=== PATIENT | female | born 1955 | race Caucasian/White ===

== ENCOUNTER → 2018-10-15 | Day surgery (SDC) | payer OTHER ==
[~2018-10-15] MED LIST: AMANTADINE HCL25 GM; AMANTADINE100 MG PO; AMPICILLIN SOD 1 GM/NS 50ML 50 ML IV ONE; AMPYRA10 MG; BELLADONNA/OPIUM 30 MG SUPP RC ONE; BOTULINUM TOXIN TYPE A 100 UNIT VIAL IM ONE; CALCIUM VIT D; CITALOPRAM HBR20 MG PO; CO Q10100 MG PO; COQ-10100 MG; DEXAMETHASONE SOD PHOS INJ 4 MG/ML VIAL ONE; FISH OIL 1,2001 EACH; GENTAMICIN 80MG/NS 100 ML 200 ML IV ONE; IOPAMIDOL 610MG/1ML 300 MG/ML VIAL IV ONE; LIDOCAINE HCL 2% LOCAL INJ 5 ML SDV VIAL INJ ONE; LYRICA50 MG; MULTI-VITAMIN1 EACH; ONDANSETRON HCL INJ 2MG/ML 2ML 2 MG/ML VIAL ONE; PROPOFOL IV EMULSION 10 MG/ML 20 ML VIAL ONE; RED YEAST RICE600 M1; SEVOFLURANE INHAL SOLN 250 ML PEN BTL ONE; TOPIRAMATE100 MG PO; TOPIRAMATE25 MG PO; TURMERIC1 GM PO; VIT B12 PO; [UNRECOGNIZED DRUG - REMARK]
--- OUTSIDE RECORDS SUMMARY | 2018-10-15 07:23 | XMS REPORT | Clinical Summary ---
Author Author [facility] Organization [facility] Address Unknown Phone Unavailable Care Team Providers Care Glost Placer Name Role Phone Amy Oakes MD PCP Allergies Comments Active Allergy Reactions Severity Noted Date Hydrocodone Hives 06/27/2018 Rash Sulfa (Sulfonamide 06/27/2018 Antibiotics) Medications End Date Status Medication Sig Dispensed Refills Start Date Active ondansetron (ZOFRAN) 4 MG Take 1 tablet 7 tablet 0 tablet (4 mg total) 8 by mouth every 8 (eight) hours as needed for nausea or vomiting for up to 7 doses. 07/02/2018 tamsulosin (FLOMAX) 0.4 Take 1 5 capsule 0 mg capsule capsule (0.4 8 mg total) by mouth daily for 5 days. 06/30/2018 keTOROlac (TORadol) 10 mg Take 1 tablet 10 tablet 0 tablet (10 mg total) 8 by mouth every 6 (six) hours as needed for moderate pain for up to 3 days. 07/02/2018 nitrofurantoin, Take 1 10 capsule 0 macrocrystal-monohydrate, capsule (100 8 (MACROBID) 100 MG capsule mg total) by mouth 2 (two) times a day for 5 days. Active Problems Not on file Encounters Care Team Description Date Type Specialty William Frey MD Liver hemangioma (Primary Dx); Renal stone; Urinary tract infection with hematuria, site unspecified; Candidiasis 06/27/2018 Emergency Emergency Medicine after 10/14/2017 Social History Date Tobacco Use Types Packs/Day Years Used Never Smoker Smokeless Tobacco: Never Used Alcohol Use Drinks/Week oz/Week Comments No Sex Assigned at Date Recorded Not on file Industry Job Start Date Occupation Not on file Not on file Not on file Travel End Travel History Travel Start No recent travel history available. Last Filed Vital Signs Time Taken Vital Sign Reading 06/27/2018 6:41 PM CDT Blood Pressure 113/58 06/27/2018 6:41 PM CDT Pulse 68 06/27/2018 1:57 PM CDT Temperature 36.7 C (98.1 F) 06/27/2018 6:41 PM CDT Respiratory Rate 20 06/27/2018 6:41 PM CDT Oxygen Saturation 98% - Inhaled Oxygen - Concentration 06/27/2018 1:57 PM CDT Weight 89.8 kg (198 lb) 06/27/2018 1:57 PM CDT Height 172.7 cm (5' 8") 06/27/2018 1:57 PM CDT Body Mass Index 30.11 Plan of Treatment Health Maintenance Due Date Last Done Comments CERVICAL CANCER SCREENING 1976 BREAST CANCER SCREENING 2005 COLON CANCER SCREENING 2005 SHINGLES VACCINES (1 of 2005 2) INFLUENZA VACCINE 04/30/2018 Procedures Comments Procedure Name Priority Date/Time Associated Diagnosis CT ABDOMEN PELVIS W STAT 06/27/2018 CONTRAST 5:01 PM CDT URINALYSIS SCREEN AND STAT 06/27/2018 MICROSCOPY, WITH REFLEX 3:45 PM CDT TO CULTURE GRAM STAIN STAT 06/27/2018 3:45 PM CDT URINE CULTURE STAT 06/27/2018 3:45 PM CDT ESTIMATED GFR STAT 06/27/2018 3:10 PM CDT COMPREHENSIVE METABOLIC STAT 06/27/2018 PANEL 3:10 PM CDT PARTIAL THROMBOPLASTIN STAT 06/27/2018 TIME (PTT) 3:10 PM CDT PROTHROMBIN TIME WITH INR STAT 06/27/2018 3:10 PM CDT HC COMPLETE BLD COUNT STAT 06/27/2018 W/AUTO DIFF 3:10 PM CDT after 10/14/2017 Results * CT Abdomen Pelvis W Contrast (06/27/2018 5:01 PM CDT) Narrative Performed At CT ABDOMEN PELVIS W CONTRAST [facility] CLINICAL INDICATION: Abd paindiverticulitis suspected, RLQ pain TECHNIQUE:Multidetector CT imaging of the abdomen and pelvis was performed following the intravenous administration of iodinated contrast with automated exposure control and/or iterative reconstruction techniques to radiation dose. COMPARISON:None FINDINGS: LUNG BASES:Clear. LIVER:There is a well-circumscribed but mixed density mass in the left hepatic dome that measures 3.4 x 4.1 cm with an area of peripheral nodular enhancement most consistent with a cavernous hemangioma. Consider MR for definitive characterization as warranted. Punctate granulomas noted. BILIARY:Gallbladder is absent. No biliary dilatation. SPLEEN:Normal. PANCREAS:Normal. ADRENALS:Normal. KIDNEYS:Indeterminate too small to characterize low-density probable cyst lower pole left kidney. There is delayed enhancement of the right kidney with prominent perinephric stranding and moderate hydronephrosis, the right ureter dilated into the pelvis with a 2 mm calculus at the right ureterovesical junction causing obstructive uropathy. GI:Large and small bowel are normal in caliber.Moderate stool noted to the colon.Appendix is visualized and appears normal. Small hiatal hernia. VASCULAR:Mild atherosclerosis. LYMPH NODES:No enlarged lymph nodes in the abdomen or pelvis. PELVIS:No lymphadenopathy or abnormal fluid collection.Uterus and ovaries are unremarkable. BONES:Mild degenerative changes. OTHER:No hernia is identified. IMPRESSION: 1. Acute obstructive uropathy with 2 mm calculus in the right uterovesical junction as described. No findings for acute appendicitis. 2. Multiple incidental findings as described including probable 4.1 cm cavernous hemangioma left hepatic dome, small hiatal hernia, hepatic granulomas and other findings as detailed. Thank you for allowing us to participate in the care of your patient. [id number] Procedure Note Interface, Radiology Results Incoming - 06/27/2018 5:[address] ABDOMEN PELVIS W CONTRAST CLINICAL INDICATION: Abd pain diverticulitis suspected, RLQ pain TECHNIQUE: Multidetector CT imaging of the abdomen and pelvis was performed following the intravenous administration of iodinated contrast with automated exposure control and/or iterative reconstruction techniques to radiation dose. COMPARISON: None FINDINGS: LUNG BASES: Clear. LIVER: There is a well-circumscribed but mixed density mass in the left hepatic dome that measures 3.4 x 4.1 cm with an area of peripheral nodular enhancement most consistent with a cavernous hemangioma. Consider MR for definitive characterization as warranted. Punctate granulomas noted. BILIARY: Gallbladder is absent. No biliary dilatation. SPLEEN: Normal. PANCREAS: Normal. ADRENALS: Normal. KIDNEYS: Indeterminate too small to characterize low-density probable cyst lower pole left kidney. There is delayed enhancement of the right kidney with prominent perinephric stranding and moderate hydronephrosis, the right ureter dilated into the pelvis with a 2 mm calculus at the right ureterovesical junction causing obstructive uropathy. GI: Large and small bowel are normal in caliber. Moderate stool noted to the colon. Appendix is visualized and appears normal. Small hiatal hernia. VASCULAR: Mild atherosclerosis. LYMPH NODES: No enlarged lymph nodes in the abdomen or pelvis. PELVIS: No lymphadenopathy or abnormal fluid collection. Uterus and ovaries are unremarkable. BONES: Mild degenerative changes. OTHER: No hernia is identified. IMPRESSION: 1. Acute obstructive uropathy with 2 mm calculus in the right uterovesical junction as described. No findings for acute appendicitis. 2. Multiple incidental findings as described including probable 4.1 cm cavernous hemangioma left hepatic dome, small hiatal hernia, hepatic granulomas and other findings as detailed. Thank you for allowing us to participate in the care of your patient. [id number] Performing Organization Address City/State/Zipcode Phone Number [facility] [address] [place] [address] * Urinalysis screen and microscopy, with reflex to culture (06/27/2018 3:45 PM CDT) Specimen site Clean catch [facility] DEPARTMENT OF PATHOLOGY AND GENOMIC MEDICINE Color, UA Yellow [facility] OF PATHOLOGY AND GENOMIC MEDICINE Appearance, UA Slightly-Cloudy [facility] OF PATHOLOGY AND GENOMIC MEDICINE Specific gravity, UA 1.024 1.001 - 1.035 [facility] OF PATHOLOGY AND GENOMIC MEDICINE pH, UA 6.0 5.0 - 8.5 [facility] OF PATHOLOGY AND GENOMIC MEDICINE Protein, UA Negative Negative [facility] OF PATHOLOGY AND GENOMIC MEDICINE Glucose, UA Negative Negative [facility] OF PATHOLOGY AND GENOMIC MEDICINE Ketones, UA Negative Negative [facility] OF PATHOLOGY AND GENOMIC MEDICINE Bilirubin, UA Negative Negative [facility] OF PATHOLOGY AND GENOMIC MEDICINE Blood, UA Negative Negative [facility] OF PATHOLOGY AND GENOMIC MEDICINE Nitrite, UA Negative Negative [facility] OF PATHOLOGY AND GENOMIC MEDICINE Urobilinogen, UA Negative <2.0 [facility] OF PATHOLOGY AND GENOMIC MEDICINE Leukocyte esterase, UA Large (A) Negative [facility] OF PATHOLOGY AND GENOMIC MEDICINE Epithelial cells, UA Many /HPF [facility] OF PATHOLOGY AND GENOMIC MEDICINE Round epithelial cells, Few 0 - 1 /HPF [facility] DE[facility] OF UA PATHOLOGY AND GENOMIC MEDICINE WBC, UA 6-10 (H) 0 - 4 /HPF [facility] OF PATHOLOGY AND GENOMIC MEDICINE RBC, UA 11-20 (H) 0 - 5 /HPF [facility] OF PATHOLOGY AND GENOMIC MEDICINE Bacteria, UA Trace None seen [facility] OF PATHOLOGY AND GENOMIC MEDICINE Yeast, UA Many (A) [facility] OF PATHOLOGY AND GENOMIC MEDICINE Yeast with pseudohyphae, None seen [facility] OF PATHOLOGY AND GENOMIC MEDICINE Hyaline casts, UA 3-5 /LPF [facility] OF PATHOLOGY AND GENOMIC MEDICINE Specimen Urine Performing Organization Address City/[facility] Phone Number [facility] [address] [place] [address] PATHOLOGY AND GENOMIC MEDICINE * Gram stain (06/27/2018 3:45 PM CDT) Gram stain result Rare WBC's [facility] DEPARTMENT OF Moderate Gram variable rods PATHOLOGY AND Comment: GENOMIC MEDICINE Specimen Information Specimen Source: Urine Specimen Site: Clean catch Specimen Urine Performing Organization Address City/[facility] Phone Number [facility] [place] [address] PATHOLOGY AND GENOMIC MEDICINE * Urine culture (06/27/2018 3:45 PM CDT) Urine culture isolate Mixed Gram positive yamileth [facility] DE[facility]MENT OF 10-5 cfu/ml PATHOLOGY AND (A) GENOMIC MEDICINE Comment: Specimen Information Specimen Source: Urine Specimen Site: Clean catch Specimen Urine Performing Organization Address City/[facility] Phone Number [facility] [place] [address] PATHOLOGY AND GENOMIC MEDICINE * Estimated GFR (06/27/2018 3:10 PM CDT) Estimated GFR 53 (A) mL/min/1.73 m2 [facility] DEPART[facility] OF Comment: PATHOLOGY AND [employer] GENOMIC MEDICINE rpretation G1 >=90 Normal or high G2 60-89Mildly decreased [id number] Mildly to moderately decreased [id number] Moderately to severely decreased G4 15-29Severely decreased G5 <15Kidney failure The eGFR was calculated using the Chronic Kidney Disease Epidemiology Collaboration (CKD-EPI) equation. Interpretation is based on recommendations of the National Kidney Foundation-Kidney Disease Outcomes Quality Initiative (NKF-KDOQI) published in 2014. Specimen Plasma specimen Performing Organization Address [facility] Phone Number [address] [place] [address] PATHOLOGY AND [employer] [facility] * Partial thromboplastin time, activated (06/27/2018 3:10 PM CDT) PTT 30.8 23.0 - 36.0 sec [facility] DEPARTMENT OF Comment: PATHOLOGY AND PTT therapeutic range for [facility] unfractionated heparin is 61.0-112.0 seconds which corresponds to Anti-Xa 0.3-0.7 U/ml. Specimen Blood Performing Organization Address [facility] Number [address] [place] [address] PATHOLOGY AND [employer] [facility] * Prothrombin time with INR (06/27/2018 3:10 PM CDT) Prothrombin time 12.9 12.0 - 15.0 sec [facility] DEPARTMENT OF PATHOLOGY AND [employer] MEDICINE INR 1.0 [facility] DEPARTMENT OF Comment: PATHOLOGY AND The International Normalized [facility] MEDICINE Ratio (INR) is a therapeutic monitoring tool for patients who are stable on oral anticoagulant therapy. An INR of 2.0-3.0 is suggested for deep vein thrombosis/pulmonary embolism. Specimen Blood Performing Organization Address [facility] Number [address] [place] [address] PATHOLOGY AND [employer] [facility] * CBC with platelet and differential (06/27/2018 3:10 PM CDT) WBC 12.62 (H) 4.50 - 11.00 k/uL [facility] DEPARTMENT OF PATHOLOGY AND GENOMIC MEDICINE RBC 4.53 4.20 - 5.50 m/uL [facility] DEPART[facility] OF PATHOLOGY AND GENOMIC MEDICINE HGB 13.8 12.0 - 16.0 g/dL [facility] DEPART[facility] OF PATHOLOGY AND GENOMIC MEDICINE HCT 42.2 37.0 - 47.0 % [facility] DEPART[facility] OF PATHOLOGY AND GENOMIC MEDICINE MCV 93.2 82.0 - 100.0 fL [facility] DE[facility] OF PATHOLOGY AND GENOMIC MEDICINE MCH 30.5 27.0 - 34.0 pg [facility] DEPARTMENT OF PATHOLOGY AND GENOMIC MEDICINE MCHC 32.7 31.0 - 37.0 g/dL [facility] DEPARTMENT OF PATHOLOGY AND GENOMIC MEDICINE RDW - SD 47.2 37.0 - 55.0 fL [facility] DEPARTMENT OF PATHOLOGY AND GENOMIC MEDICINE MPV 9.8 8.8 - 13.2 fL [facility] OF PATHOLOGY AND GENOMIC MEDICINE Platelet count 198 150 - 400 k/uL [facility]PARTMENT OF PATHOLOGY AND GENOMIC MEDICINE Neutrophils 76.5 (H) 39.0 - 69.0 % [facility] DEPART[facility] OF PATHOLOGY AND GENOMIC MEDICINE Lymphocytes 15.1 (L) 25.0 - 45.0 % [facility] DE[facility] OF PATHOLOGY AND GENOMIC MEDICINE Monocytes 6.4 0.0 - 10.0 % [facility] DEPARTMENT OF PATHOLOGY AND GENOMIC MEDICINE Eosinophils 1.1 0.0 - 5.0 % [facility] DEPARTMENT OF PATHOLOGY AND GENOMIC MEDICINE Basophils 0.6 0.0 - 1.0 % [facility] DEPARTMENT OF PATHOLOGY AND GENOMIC MEDICINE Specimen Blood Performing Organization Address City/State/Zipcode Phone Number [place] [address] [place] [address] PATHOLOGY AND GENOMIC MEDICINE * Comprehensive metabolic panel (06/27/2018 3:10 PM CDT) Sodium 137 135 - 148 mEq/L [facility] DEPARTMENT OF PATHOLOGY AND GENOMIC MEDICINE Potassium 4.2 3.5 - 5.0 mEq/L [facility] DEPARTMENT OF PATHOLOGY AND GENOMIC MEDICINE Chloride 102 98 - 112 mEq/L [facility] DEPARTMENT OF PATHOLOGY AND GENOMIC MEDICINE CO2 23 (L) 24 - 31 mEq/L [facility] DE[facility] OF PATHOLOGY AND GENOMIC MEDICINE Anion gap 12@ANIO 7 - 15 mEq/L [facility] DEPARTMENT OF PATHOLOGY AND GENOMIC MEDICINE BUN 16 8 - 23 mg/dL [facility] DEPARTMENT OF PATHOLOGY AND GENOMIC MEDICINE Creatinine 1.10 (H) 0.50 - 0.90 mg/dL [facility] OF PATHOLOGY AND GENOMIC MEDICINE Glucose 98 65 - 99 mg/dL [facility]MENT OF PATHOLOGY AND GENOMIC MEDICINE Calcium 9.1 8.8 - 10.2 mg/dL [facility] DEPARTMENT OF PATHOLOGY AND GENOMIC MEDICINE Protein 7.2 6.3 - 8.3 g/dL [facility] DEPARTMENT OF Comment: PATHOLOGY AND [place] GENOMIC MEDICINE 4.6-7.0 g/dL 1 week 4.4-7.6 g/dL 7 months-1year 5.1-7.3 g/dL 1-2 years5.6-7 .5 g/dL >3 years6.0-8 .0 g/dL 18-150 6.3-8.3 g/dL Albumin 4.1 3.5 - 5.0 g/dL [facility] DEPARTMENT OF PATHOLOGY AND GENOMIC MEDICINE A/G ratio 1.3 0.7 - 3.8 [facility] DEPARTMENT OF PATHOLOGY AND GENOMIC MEDICINE Alkaline phosphatase 110 (H) 35 - 104 U/L [facility] DEPARTMENT OF PATHOLOGY AND GENOMIC MEDICINE AST 17 10 - 35 U/L [facility] DEPARTMENT OF PATHOLOGY AND GENOMIC MEDICINE ALT 16 5 - 50 U/L [facility] DEPARTMENT OF PATHOLOGY AND GENOMIC MEDICINE Total bilirubin 0.3 0.0 - 1.2 mg/dL [facility] DEPARTMENT OF PATHOLOGY AND GENOMIC MEDICINE Specimen Plasma specimen Performing Organization Address City/State/[facility] Phone Number [facility] [id number] [place] [address] [place] [address] PATHOLOGY AND GENOMIC MEDICINE after 10/14/2017 Insurance Payer Benefit Subscriber ID Type Phone Address Plan / Group xxxxxxxxx [facility] Advance Directives Patient has advance care planning documents on file. For more information, muriel mcdonald contact: Jose Jones [address] [place] [address]
--- NOTE | 2018-10-15 08:24 | Diagnostic Imaging Report ---
Exam: Sacral radiographs, 2 views Clinical History: Preoperative-cystoscopy Comparison: None. Findings: No evidence of acute fracture or malalignment. There is a partially visualized stimulator device, overlying the left hemisacrum. Calcifications projecting over the bilateral pelvis likely represent phleboliths. Impression: No acute radiographic abnormality. Signed by: Dr. Dipak Xavier MD on 10/15/2018 8:21 AM
[2018-10-15 12:35] VITALS: BP 131/61
--- NOTE | 2018-11-24 08:12 | Operative Report ---
DATE OF PROCEDURE: 10/15/2018 SURGEON: Jeffrey Bush MD PREOPERATIVE DIAGNOSES: 1. Refractory urge incontinence. 2. Urinary tract infections. POSTOPERATIVE DIAGNOSES: 1. Refractory urge incontinence. 2. Urinary tract infections. 3. Atrophic (senile) vaginitis. 4. Mild rectocele. OPERATIONS PERFORMED: 1. Cystourethroscopy with bilateral ureteral catheterization and retrograde ureteropyelography (Performed for the urinary tract infections). 2. Interpretation of retrograde ureteropyelography. 3. Cystourethroscopy with injection of Botox (Performed for the refractory incontinence). 4. Pelvic examination under anesthesia. ANESTHESIA: General. COMPLICATIONS: None. CLINICAL SUMMARY: Gabriella Shields is a complex 63-year-old woman. She has an InterStim implant for refractory urge incontinence, which she continues to have, although improved with InterStim. She is brought for Botox. She is aware of the risks of bleeding, infection, injury to the adjacent structures, and need for additional procedures, and elected to proceed. PROCEDURE IN DETAIL: Informed consent was verified. Gabriella Shields was appropriately identified, taken to the operating room, and placed on the cystoscopy table in supine position. Anesthesia was uneventfully begun. The patient was then carefully and gently repositioned in dorsal lithotomy position with all pressure points well padded. Her genitalia were prepared and draped in the usual sterile fashion. A 22.5-Lao cystoscope sheath with obturator in place was atraumatically inserted into the patient's urethra and bladder was drained. Panendoscopy revealed trigonitis, but no tumors, no stones, no diverticula, and no suspicious lesions. Trabeculations were noted. An 8-Lao catheter was used to cannulate the each ureter and retrograde ureteropyelography was performed. Interpretation of Retrograde Ureteropyelography: Contrast was instilled in a retrograde fashion bilaterally. There were no tumors, no stones, and no diverticula. Unobstructed drainage was observed bilaterally fluoroscopically. We can see the InterStim lead on the left hand side and appeared to be in a correct position. Botox was dissolved in sterile saline and it was then progressively injected in small aliquots in an even distribution throughout the supratrigonal bladder. The patient's bladder was then drained. The cystoscope was withdrawn. Pelvic examination under anesthesia revealed atrophic vaginitis with mild grade 1 rectocele. There were no abnormal palpable pelvic masses that could be appreciated. There were no obvious mucosal lesions. The patient was then uneventfully reversed from anesthesia and taken to the recovery room in stable condition. Review of sacral films performed on the day of surgery revealed that the patient's lead was proximally migrated. Future reprogramming of her InterStim need to involve programming away from utilization of the most proximal lead due to the fact that it appears to be in the canal. There were no complications during the procedure. She tolerated the procedure well. Exclusive postoperative instructions were given. We will follow the patient up in the office. Jeffrey Bush MD [place]/[facility] /[id number]
== END | disposition home or self-care (01) ==
LOC: OR 07:21
PROVIDERS: ATTEND Urology
DX: N39.41 Urge incontinence (principal); N30.30 Trigonitis without hematuria; N95.2 Postmenopausal atrophic vaginitis; N81.6 Rectocele; N32.89 Other specified disorders of bladder; G35 Multiple sclerosis; Z88.6 Allergy status to analgesic agent; Z88.2 Allergy status to sulfonamides; Z01.810 Encounter for preprocedural cardiovascular examination; Z98.890 Other specified postprocedural states; Z87.891 Personal history of nicotine dependence
CPT/HCPCS: 52005; 52287; 72220; 74420; 93005; C1758; J0290; J0587; J1100; J1580; J2001; J2405; J2704; Q9967

== ENCOUNTER → 2019-02-11 | Day surgery (SDC) | payer OTHER ==
[~2019-02-11] MED LIST changes: -AMPICILLIN SOD 1 GM/NS 50ML 50 ML IV ONE; +AMPICILLIN SOD INJ ONE; -AMPYRA10 MG; +AMPYRA10 MG PO; +B&O 60MG R/S 60 MG SUPP PR ONE; -BELLADONNA/OPIUM 30 MG SUPP RC ONE; +EPHEDRINE SULFATE INJ 50 MG/10 ML SYR ONE; +FENTANYL CITRATE/PF 100MCG/2 ML INJ ONE; +MIDAZOLAM HCL 2 MG/2 ML VIAL ONE; +RED YEAST RICE600 MG PO; +SODIUM CHLORIDE 0.9% INJ ONE
--- OUTSIDE RECORDS SUMMARY | 2019-02-11 07:46 | XMS REPORT | Clinical Summary ---
Author Author [facility] Organization [facility] Address Unknown Phone Unavailable Care Team Providers Care Station Installer Name Role Phone Amy Oakes MD PCP [...] unspecified; Candidiasis 06/27/2018 Emergency Emergency Medicine after 02/10/2018 Social History Date Tobacco Use Types Packs/Day [...] 2005 COLON CANCER SCREENING 2005 SHINGLES VACCINES (#1) 2005 INFLUENZA VACCINE 04/30/2019 Procedures Comments Procedure Name Priority Date/Time Associated [...] 06/27/2018 W/AUTO DIFF 3:10 PM CDT after 02/10/2018 Results * CT Abdomen Pelvis W Contrast [...] participate in the care of your patient. [facility]-[id number] Procedure Note Interface, Radiology Results Incoming - [...] participate in the care of your patient. [id number] Performing Organization Address City/State/Zipcode Phone Number [facility] [address] [place] [address] * Urinalysis screen and microscopy, with reflex to culture (06/27/2018 3:45 PM CDT) Specimen site Clean catch [facility] GENOMIC MEDICINE Color, UA Yellow [facility]IC[facility] Appearance, UA Slightly-Cloudy [facility]OLOGY AND GENOMIC MEDICINE Specific gravity, UA 1.024 1.001 - 1.035 [facility] GENOMIC MEDIC[facility] pH, UA 6.0 5.0 - 8.5 [facility]OLOGY AND GENOMIC MEDICINE Protein, UA Negative Negative [facility]OLOGY AND GENOMIC MEDICINE Glucose, UA Negative Negative [facility]OLOGY AND GENOMIC MEDICINE Ketones, UA Negative Negative [facility]OLOGY AND GENOMIC MEDICINE Bilirubin, UA Negative Negative [facility]OLOGY AND GENOMIC MEDICINE Blood, UA Negative Negative [facility]Y AND GENOMIC MEDICINE Nitrite, UA Negative Negative [facility]OLOGY AND GENOMIC MEDICINE Urobilinogen, UA Negative <2.0 [facility]OLOG[facility] GENOMIC MEDICINE Leukocyte esterase, UA Large (A) Negative [facility]OLOGY [facility] GENOMIC MEDICINE Epithelial cells, UA Many /HPF [facility]OLOGY AND GENOMIC MEDICINE Round epithelial cells, Few 0 - 1 /HPF [facility] OF UA PATHOLOGY AND GENOMIC MEDICINE WBC, UA 6-10 (H) 0 - 4 /HPF [facility]OLOGY AND GENOMIC MEDICINE RBC, UA 11-20 (H) 0 - 5 /HPF [facility]OLOGY [facility] GENOMIC MEDICINE Bacteria, UA Trace None seen [facility]OLOGY AND GENOMIC MEDICINE Yeast, UA Many (A) [facility]Y [facility] GENOMIC MEDICINE Yeast with pseudohyphae, None seen [facility]OLOGY AND GENOMIC MEDICINE Hyaline casts, UA 3-5 /LPF [facility] GENOMIC MEDICINE Specimen Urine Performing Organization Address City[facility] Phone Number [facility] [address] [place] [address] PATHOLOGY AND GENOMIC MEDICINE * Gram stain (06/27/2018 3:45 PM CDT) Gram stain result Rare WBC's [facility] OF Moderate Gram variable rods PATHOLOGY AND Comment: GENOMIC MEDICINE Specimen Information Specimen Source: Urine Specimen Site: Clean catch Specimen Urine Performing Organization Address City/[facility] Phone Number [facility] [place] [address] PATHOLOGY AND GENOMIC MEDICINE * Urine culture (06/27/2018 3:45 PM CDT) Urine culture isolate Mixed Gram positive yamileth [facility] DEPARTMENT OF 10-5 cfu/ml PATHOLOGY AND (A) GENOMIC MEDICINE Comment: Specimen Information Specimen Source: Urine Specimen Site: Clean catch Specimen Urine Performing Organization Address City/[facility] Phone Number [facility] [place] [address] PATHOLOGY AND GENOMIC MEDICINE * Estimated GFR (06/27/2018 3:10 PM CDT) Estimated GFR 53 (A) mL/min/1.73 m2 [facility] OF Comment: PATHOLOGY AND [employer] GENOMIC MEDICINE rpretation G1 >=90 Normal or high G2 60-89Mildly decreased [id number] Mildly to moderately decreased F2o33-04 Moderately to severely decreased G4 15-29Severely decreased G5 <15Kidney failure The eGFR was calculated using the Chronic Kidney Disease Epidemiology Collaboration (CKD-EPI) equation. Interpretation is based on recommendations of the National Kidney Foundation-Kidney Disease Outcomes Quality Initiative (NKF-KDOQI) published in 2014. Specimen Plasma specimen Performing Organization Address [facility] Phone Number [address] [place] [address] PATHOLOGY AND [employer] * Partial thromboplastin time, activated (06/27/2018 3:10 PM CDT) PTT 30.8 23.0 - 36.0 sec [facility] OF Comment: PATHOLOGY AND PTT therapeutic range for [facility] unfractionated heparin is 61.0-112.0 seconds which corresponds to Anti-Xa 0.3-0.7 U/ml. Specimen Blood Performing Organization Address [facility] Number [address] [place] [address] PATHOLOGY AND [facility] * Prothrombin time with INR (06/27/2018 3:10 PM CDT) Prothrombin time 12.9 12.0 - 15.0 sec [facility] DEPART[facility] OF PATHOLOGY AND [employer] MEDICINE INR 1.0 [facility] OF Comment: PATHOLOGY AND The International Normalized [facility] MEDICINE Ratio (INR) is a therapeutic monitoring tool for patients who are stable on oral anticoagulant therapy. An INR of 2.0-3.0 is suggested for deep vein thrombosis/pulmonary embolism. Specimen Blood Performing Organization Address [facility] Number [address] [place] [address] PATHOLOGY AND [facility] * CBC with platelet and differential (06/27/2018 3:10 PM CDT) WBC 12.62 (H) 4.50 - 11.00 k/uL [facility] OF PATHOLOGY AND GENOMIC MEDICINE RBC 4.53 4.20 - 5.50 m/uL [facility] OF PATHOLOGY AND GENOMIC MEDICINE HGB 13.8 12.0 - 16.0 g/dL [facility] OF PATHOLOGY AND GENOMIC MEDICINE HCT 42.2 37.0 - 47.0 % [facility] OF PATHOLOGY AND GENOMIC MEDICINE MCV 93.2 82.0 - 100.0 fL [facility] OF PATHOLOGY AND GENOMIC MEDICINE MCH 30.5 27.0 - 34.0 pg [facility] OF PATHOLOGY AND GENOMIC MEDICINE MCHC 32.7 31.0 - 37.0 g/dL [facility] OF PATHOLOGY AND GENOMIC MEDICINE RDW - SD 47.2 37.0 - 55.0 fL [facility] OF PATHOLOGY AND GENOMIC MEDICINE MPV 9.8 8.8 - 13.2 fL [facility]OLOGY AND GENOMIC MEDICINE Platelet count 198 150 - 400 k/uL [facility] OF PATHOLOGY AND GENOMIC MEDICINE Neutrophils 76.5 (H) 39.0 - 69.0 % [facility]OLOGY AND GENOMIC MEDICINE Lymphocytes 15.1 (L) 25.0 - 45.0 % [facility] OF PATHOLOGY AND GENOMIC MEDICINE Monocytes 6.4 0.0 - 10.0 % [facility] OF PATHOLOGY AND GENOMIC MEDICINE Eosinophils 1.1 0.0 - 5.0 % [facility] OF PATHOLOGY AND GENOMIC MEDICINE Basophils 0.6 0.0 - 1.0 % [facility] OF PATHOLOGY AND GENOMIC MEDICINE Specimen Blood Performing Organization Address City/State/Zipcode Phone [place] [address] [place] [address] PATHOLOGY AND GENOMIC MEDICINE * Comprehensive metabolic panel (06/27/2018 3:10 PM CDT) Sodium 137 135 - 148 mEq/L [facility] OF PATHOLOGY AND GENOMIC MEDICINE Potassium 4.2 3.5 - 5.0 mEq/L [facility] OF PATHOLOGY AND GENOMIC MEDICINE Chloride 102 98 - 112 mEq/L [facility] OF PATHOLOGY AND GENOMIC MEDICINE CO2 23 (L) 24 - 31 mEq/L [facility] OF PATHOLOGY AND GENOMIC MEDICINE Anion gap 12@ANIO 7 - 15 mEq/L [facility] OF PATHOLOGY AND GENOMIC MEDICINE BUN 16 8 - 23 mg/dL [facility] OF PATHOLOGY AND GENOMIC MEDICINE Creatinine 1.10 (H) 0.50 - 0.90 mg/dL [facility] PATHOLOGY AND GENOMIC MEDICINE Glucose 98 65 - 99 mg/dL [facility] OF PATHOLOGY AND GENOMIC MEDICINE Calcium 9.1 8.8 - 10.2 mg/dL [facility] OF PATHOLOGY AND GENOMIC MEDICINE Protein 7.2 6.3 - 8.3 g/dL [facility] OF Comment: PATHOLOGY AND GENOMIC MEDICINE 4.6-7.0 g/dL 1 week 4.4-7.6 g/dL 7 months-1year 5.1-7.3 g/dL 1-2 years5.6-7 .5 g/dL >3 years6.0-8 .0 g/dL 18-150 6.3-8.3 g/dL Albumin 4.1 3.5 - 5.0 g/dL [facility] OF PATHOLOGY AND GENOMIC MEDICINE A/G ratio 1.3 0.7 - 3.8 [facility] OF PATHOLOGY AND GENOMIC MEDICINE Alkaline phosphatase 110 (H) 35 - 104 U/L [facility] OF PATHOLOGY AND GENOMIC MEDICINE AST 17 10 - 35 U/L [facility] OF PATHOLOGY AND GENOMIC MEDICINE ALT 16 5 - 50 U/L [facility] OF PATHOLOGY AND GENOMIC MEDICINE Total bilirubin 0.3 0.0 - 1.2 mg/dL [facility] OF PATHOLOGY AND GENOMIC MEDICINE Specimen Plasma specimen Performing Organization Address City/State/[facility] Phone Number [facility] [id number] [place] [address] [place] [address] PATHOLOGY AND GENOMIC MEDICINE after 02/10/2018 Insurance Payer Benefit Subscriber ID Type Phone Address Plan / Group xxxxxxxxx [facility] Advance Directives Patient has advance care planning documents on file. For more information, muriel mcdonald contact: Jose Jones [address] [place] [address]
--- OUTSIDE RECORDS SUMMARY | 2019-02-11 07:46 | XMS REPORT ---
Author Author [facility] Address Unknown Phone Unavailable Care Team Providers Care Trust Administrative Assistant Name Role Phone KHANG SMITH Unavailable Unavailable Problems This patient has no known problems. Allergies, Adverse Reactions, Alerts This patient has no known allergies or adverse reactions. Medications This patient has no known medications. Results Test Description Test Time Test Comments Text Results Atomic Results Result Comments [facility] X-RAY 2018-10-15 08:19:00 [place] [address] Patient Name: CARTER CORTES MR #: [id number] : 1955 Age/Sex: 63/F Req #: [id number] Adm Physician: Ordered by: KHANG SMITH MD Report #: [id number] Location: OR Room/Bed: Procedure: [id number] DX/[facility]CR[facility] X-RAY Exam Date: 10/15/18 Exam Time: 0755 REPORT STATUS: Signed Exam: Sacral radiographs, 2 views Clinical History: Preoperative-cystoscopy Comparison: None. Findings: No evidence of acute fracture or malalignment. There is a partially visualized stimulator device, overlying the left hemisacrum. Calcifications projecting over the bilateral pelvis likely represent phleboliths. Impression: No acute radiographic abnormality. Signed by: Dr. Bk Xavier MD on 10/15/2018 8:21 AM Dictated By: BK XAVIER MD 0 Transcribed By: JESSENIA on 10/15/18820 COPY TO: KHANG SMITH MD
[2019-02-11 10:55] VITALS: BP 122/61
--- NOTE | 2019-04-08 04:25 | Operative Report ---
DATE OF PROCEDURE: 02/11/2019 SURGEON: Jeffrey Bush MD PREOPERATIVE DIAGNOSES: 1. Refractory urge incontinence. 2. Urinary tract infections. POSTOPERATIVE DIAGNOSES: 1. Refractory urge incontinence. 2. Urinary tract infections. 3. Grade 1 rectocele. 4. Atrophic (senile) vaginitis. OPERATIONS PERFORMED: 1. Cystourethroscopy with bilateral ureteral catheterization and retrograde ureteropyelography (separate procedure performed for the urinary tract infections). 2. Interpretation of retrograde ureteropyelography. 3. Cystourethroscopy with intravesical injection of Botox (separate procedure performed to help with the refractory incontinence). 4. Pelvic examination under anesthesia. ANESTHESIA: General. COMPLICATIONS: None. CLINICAL SUMMARY: Gabriella Shields is a 63-year-old woman with neurogenic bladder, hyperreflexic bladder as well as refractory urge incontinence. She is brought for the above procedures. She is aware of the risks of bleeding, infection, injury to adjacent structures, need for additional procedures and elected to proceed. The patient has an InterStim implant and this in conjunction with the Botox injections has been the best method of Botox that has helped her. She is brought for the above procedures. She is aware of the risks of bleeding, infection, injury to adjacent structures, need for additional procedures and elected to proceed. OPERATIVE PROCEDURE IN DETAIL: Informed consent was verified. Gabriella Shields was properly identified, taken to the operating room, placed in the cystoscopy table in supine position. Anesthesia was uneventfully begun. The patient was carefully and gently repositioned in dorsal lithotomy position. All pressure points well padded. Her genitalia were prepared and draped in usual sterile fashion. The cystoscope sheath with obturator in place was atraumatically inserted into the patient's urethra and bladder was drained. Panendoscopy revealed a grade 2-3 trabeculations, but no tumors, no stones or diverticula, normally positioned configured ureteral orifices were identified. An 8-Polish catheter was used to cannulate each ureter and retrograde ureteropyelograms were performed. Interpretation of retrograde ureteropyelography: Contrast was instilled in retrograde fashion bilaterally. There were no tumors, no stones, and no diverticula. Unobstructed drainage was observed bilaterally fluoroscopically. Lead was noted on the left hand side. A 200 units of Botox were dissolved in 20 mL of sterile saline. The Botox was injected in 1 mL aliquots in an even distribution throughout the supratrigonal bladder. The patient's bladder was drained. The cystoscope was withdrawn. Pelvic examination revealed a grade 1 rectocele with atrophic (senile) vaginitis. No abnormal palpable pelvic masses could be appreciated. There were no obvious mucosal lesions. The patient was then uneventfully reversed from anesthesia and taken to recovery room in stable condition. There were no complications to the procedure. The patient tolerated procedure well. Explicit postop instructions were given. We will follow the patient up in the office. MD TYRA Magdaleno/GINA /[id number]
== END | disposition home or self-care (01) ==
LOC: OR 07:40
PROVIDERS: ATTEND Urology
DX: N39.41 Urge incontinence (principal); N39.0 Urinary tract infection, site not specified; N81.6 Rectocele; N95.2 Postmenopausal atrophic vaginitis; N31.8 Other neuromuscular dysfunction of bladder; N32.89 Other specified disorders of bladder; G35 Multiple sclerosis; Z01.810 Encounter for preprocedural cardiovascular examination; Z91.018 Allergy to other foods; Z87.891 Personal history of nicotine dependence
CPT/HCPCS: 52005; 52287; 74420; 93005; C1758; J0587; J1100; J1580; J2001; J2250; J2405; J2704; Q9967; J3010

== ENCOUNTER → 2019-03-24 | Outpatient (CLI) | payer OTHER ==
[~2019-03-24] MED LIST changes: -AMPICILLIN SOD INJ ONE; +AMPYRA10 MG; -AMPYRA10 MG PO; -B&O 60MG R/S 60 MG SUPP PR ONE; -BOTULINUM TOXIN TYPE A 100 UNIT VIAL IM ONE; -DEXAMETHASONE SOD PHOS INJ 4 MG/ML VIAL ONE; -EPHEDRINE SULFATE INJ 50 MG/10 ML SYR ONE; -FENTANYL CITRATE/PF 100MCG/2 ML INJ ONE; -GENTAMICIN 80MG/NS 100 ML 200 ML IV ONE; +IOPAMIDOL 370 MG/ML 200 ML INFUS..BTL INJ ONE; -IOPAMIDOL 610MG/1ML 300 MG/ML VIAL IV ONE; -LIDOCAINE HCL 2% LOCAL INJ 5 ML SDV VIAL INJ ONE; -MIDAZOLAM HCL 2 MG/2 ML VIAL ONE; -ONDANSETRON HCL INJ 2MG/ML 2ML 2 MG/ML VIAL ONE; -PROPOFOL IV EMULSION 10 MG/ML 20 ML VIAL ONE; -RED YEAST RICE600 MG PO; -SEVOFLURANE INHAL SOLN 250 ML PEN BTL ONE; +SODIUM CHLORIDE 0.9% 250ML 250 ML ONE; -SODIUM CHLORIDE 0.9% INJ ONE
[2019-03-24 09:32] LABS: BLOOD UREA NITROGEN 14 mg/dL (7-26); BUN/CREATININE RATIO 16 (6-25); CREATININE, SERUM 0.89 mg/dL (0.57-1.11); EST GLOMERULAR FILTRATION RATE > 60 ML/MIN (60-)
--- NOTE | 2019-03-24 13:34 | Diagnostic Imaging Report ---
EXAM: CT ABDOMEN AND PELVIS with and without IV CONTRAST DATE: 03/24/2019 Time stamp on Exam: 10:24 AM INDICATION: Microscopic hematuria COMPARISON: None TECHNIQUE: The abdomen and pelvis were scanned using a multidetector helical scanner. Coronal and sagittal reformations were obtained. Hematuria protocol was utilized. Technique modification was accomplished to maintain the lowest dose possible to the patient. IV Contrast: 100 cc of Isovue-370 Oral Contrast: None Radiation Dose: Total DLP 1263.48 mGy*cm Estimated effective dose: DLP x 0.015 x size factor FINDINGS: LOWER THORAX: No consolidations LIVER: Ill-defined hepatic mass in the left lobe of the liver has serpiginous enhancement and likely represents a cavernous hemangioma measuring 4 x 4.4 cm. BILIARY: The gallbladder is unremarkable. No ductal dilatation. SPLEEN: No masses PANCREAS: No masses ADRENALS: No nodules KIDNEYS: Symmetric perfusion. No enhancing masses. No hydronephrosis. Small nonobstructing right lower pole renal stone (axial series 3, image #66). GI TRACT: No distention, wall thickening or evidence of obstruction. VESSELS: Mild atherosclerotic vascular calcification. PERITONEUM/RETROPERITONEUM: Trans sacral stimulator lead with generator present. LYMPH NODES: No lymphadenopathy REPRODUCTIVE ORGANS: Unremarkable BLADDER: Unremarkable SOFT TISSUES: Unremarkable BONES: No suspicious bone lesions. IMPRESSION: 1. Nonobstructing tiny right renal stone. 2. Indeterminate left hepatic lobe lesion is likely a benign cavernous hemangioma. 3. CT liver mass protocol would be of benefit. Signed by: Dr. Taj Nolasco DO on 03/24/2019 1:30 PM
== END ==
LOC: CT 08:34
PROVIDERS: ATTEND Urology
DX: N31.9 Neuromuscular dysfunction of bladder, unspecified (principal)
CPT/HCPCS: 36415; 74178; 82565; 84520; J7050; Q9967

== ENCOUNTER → 2019-06-16 | Day surgery (SDC) | payer OTHER ==
[~2019-06-16] MED LIST changes: -AMPYRA10 MG; +AMPYRA10 MG PO; +B&O 60MG R/S 60 MG SUPP PR ONE; +BOTULINUM TOXIN TYPE A 100 UNIT VIAL IM ONE; +CEFTRIAXONE SOD 1 GM/NS 50 ML 50 ML IV ONE; +DEXAMETHASONE SOD PHOS INJ 4 MG/ML VIAL ONE; +FENTANYL CITRATE/PF 100MCG/2 ML INJ ONE; +GENTAMICIN SULFATE 40 MG/ML 2 ML VIAL ONE; -IOPAMIDOL 370 MG/ML 200 ML INFUS..BTL INJ ONE; +IOPAMIDOL 610MG/1ML 300 MG/ML VIAL IV ONE; +LIDOCAINE HCL 2% LOCAL INJ 5 ML SDV VIAL INJ ONE; +MIDAZOLAM HCL 2 MG/2 ML VIAL ONE; +ONDANSETRON HCL INJ 2MG/ML 2ML 2 MG/ML VIAL ONE; +PROPOFOL IV EMULSION 10 MG/ML 20 ML VIAL ONE; +RED YEAST RICE600 MG PO; +SEVOFLURANE INHAL SOLN 250 ML PEN BTL ONE; -SODIUM CHLORIDE 0.9% 250ML 250 ML ONE
--- OUTSIDE RECORDS SUMMARY | 2019-06-16 05:13 | XMS REPORT | Summary of Care ---
Author Author [facility] - Health Organization [facility] - Health Address Unknown Phone Unavailable Care Team Providers Care Gift Basket Packer Name Role Phone PCP Unavailable Reason for Visit * Reason Comments GLAUCOMA SUSPECT * (Routine) Referred By Contact Referred To Contact Status Reason Specialty Diagnoses / Procedures Royer Mustafa MD [address] [place] [address] John oLve MD [address] [employer] [id number] [place] [address] Authorized OPH-OPHTHALMOLOG Diagnoses Y / Ischemic optic Ophthalmology neuropathy, unspecified eye 3-4mo fu repeat ou P rocedures EYE EXAM & TREATMENT FOLLOW-UP WITH F Encounter Details Care Team Description Date Type Department John Love MD [address] [facility] Delivered [id number] [place] [address] Glaucoma suspect of both eyes (Primary Dx); History of optic neuritis; Nuclear senile cataract of both eyes 04/30/2019 Office Visit [facility] [address], [address] [place] [address] Allergies Comments Active Allergy Reactions Severity Noted Date Hydrocodone Swelling 04/28/2018 Sulfa (Sulfonamide Swelling 04/28/2018 Antibiotics) documented as of this encounter (statuses as of 04/30/2019) Medications End Date Status Medication Sig Dispensed Refills Start Date Active LYRICA 50 mg capsule 0 8 Active AMPYRA 10 mg Tb12 0 8 Active citalopram 20 mg tablet 0 8 Active ciprofloxacin HCl 500 mg 0 tablet 8 Active TOPIRAMATE ORAL Take by 0 mouth. Active Coenzyme Q10 (CO Q-10) 10 Take by 0 mg Cap mouth. Active docosahexanoic acid/epa Take by 0 (FISH OIL ORAL) mouth. Active CALCIUM ACETATE ORAL Take by 0 mouth. Active multivit-minerals/ferrous Take by 0 fum (MULTI VITAMIN ORAL) mouth. Active Red Yeast Rice Extract Take by 0 600 mg Cap mouth. Active dicyclomine 10 mg capsule Take 10 mg by 0 mouth 4 (four) times daily. Active Amantadine HCl 100 mg Take 100 mg 0 tablet by mouth. documented as of this encounter (statuses as of 04/30/2019) Active Problems Not on filedocumented as of this encounter (statuses as of 04/30/2019) Social History Date Tobacco Use Types Packs/Day Years Used Never Smoker Smokeless Tobacco: Never Used Drinks/Week oz/Week Comments Alcohol Use Yes Sex Assigned at Date Recorded Not on file Industry Job Start Date Occupation Not on file Not on file Not on file Travel End Travel History Travel Start No recent travel history available. documented as of this encounter Last Filed Vital Signs Reading Time Taken Comments Vital Sign - - Blood Pressure - - Pulse - - Temperature - - Respiratory Rate - - Oxygen Saturation - - Inhaled Oxygen Concentration 90.7 kg (200 lb) 04/30/2019 10:18 AM CDT Weight - - Height - - Body Mass Index documented in this encounter Progress Notes * John Love MD - 04/30/2019 10:00 AM CDT Cc: No chief complaint on file. Gabriella Shields is a 64 year old female. HPI Here for DFE and OCT. Positive family history of glaucoma - mother, had glaucom a surgery. No pain or acute vision changes OU. Past Medical History: Diagnosis Date Cataract Multiple sclerosis Multiple sclerosis Review of Systems Reviewed ROS done by the formula technician during this encounter and there are addition s noted above. Assessment ICD-10-CM ICD-9-CM 1. Glaucoma suspect of both eyes H40.003 365.00 2. History of optic neuritis Z86.69 V12.49 3. Nuclear senile cataract of both eyes H25.13 366.16 Plan Diagnoses and all orders for this visit: Glaucoma suspect of both eyes - OU SPECTRALIS OCT OPTIC NERVE, BOTH EYES; Standing done today / stable NFL overall OU, poorer quality scan OU due to tilted nerves - DFE today appears stable compared to photos OU - No gtts for now - Plan for HVF at [place] History of optic neuritis -OD, - patient has residual deficit / subjective poorer vision OD and tra ce APD OD -Follow; stable Nuclear senile cataract of both eyes -Follow for risk of progression OU; not likely visually significant -UV protection Dispo: 6 months with AKIL FAST 24-2 HVF (or AKIL FASTER if available) OU * Trinity العراقي - 04/30/2019 10:00 AM CDT OCT RNFL OU Trinity العراقي 04/30/2019 10:19 AM documented in this encounter Plan of Treatment Care Team Description Date Type Specialty John Love MD 301 [facility] [id number] [place] [address] [phone] 11/12/2019 Office Visit Ophthalmology Health Maintenance Due Date Last Done Comments HEPATITIS C (HCV) SCREEN 1955 DTaP,Tdap,and Td Vaccines 1974 (1 - Tdap) PAP SMEAR 1976 MAMMOGRAM 1995 COLONOSCOPY 2005 Zoster Recombinant 2005 Vaccine (SHINGRIX) (1 of 2) INFLUENZA VACCINE 05/31/2019 PNEUMOCOCCAL 0-64 YEARS Aged Out No longer eligible based COMBINED SERIES on patient's age to complete this topic documented as of this encounter Procedures Comments Procedure Name Priority Date/Time Associated Diagnosis OU SPECTRALIS OCT OPTIC Routine 04/30/2019 Glaucoma suspect of both NERVE, BOTH EYES eyes documented in this encounter Results * OU SPECTRALIS OCT OPTIC NERVE, BOTH EYES (04/30/2019) Impressions Performed At OD: poor scan with floor artifact / difficult to interpret; 46 microns - red.Diffuse NFL thinning. OS: ok scan with some artifact / difficult to interpret; 86 microns - green.Sup and inf NFL thinning. *overall likely stable from previous OCT OU* documented in this encounter Visit Diagnoses Diagnosis Glaucoma suspect of both eyes - Primary Preglaucoma, unspecified History of optic neuritis Personal history of other disorders of nervous system and sense organs Nuclear senile cataract of both eyes documented in this encounter Insurance Type Payer Benefit Subscriber ID Effective Phone Address Plan / Dates Group Neena LYNN [id number] 2018- [facility] Present documented as of this encounter
--- OUTSIDE RECORDS SUMMARY | 2019-06-16 05:13 | XMS REPORT | Summary of Care ---
Author Author [facility] - Health Organization [facility] - Health Address Unknown Phone Unavailable Care Team Providers Care Telegraph Dispatcher Name Role Phone PCP Unavailable Reason for Visit * Reason Comments GLAUCOMA SUSPECT * (Routine) Referred By Contact Referred To Contact Status Reason Specialty Diagnoses / Procedures Royer Mustafa MD [address] [place] [address] John Love MD [id number] [place] [id number] Authorized OPH-OPHTHALMOLOG Diagnoses Y / Ischemic optic Ophthalmology neuropathy, unspecified eye 3-4mo fu repeat ou P rocedures EYE EXAM & TREATMENT FOLLOW-UP WITH F Encounter Details Care Team Description Date Type Department John Love MD 301 [facility] [id number] [place] [address] Glaucoma suspect of both eyes (Primary Dx); History of optic neuritis; Nuclear senile cataract of both eyes 04/30/2019 Office Visit [facility] [address], [address] [place] [address] Allergies Comments Active Allergy Reactions [...] of Systems Reviewed ROS done by the natural resource technician during this encounter and there are [...] Date Type Specialty John Love MD 301 [facility] [id number] [place] [address] [phone] 11/12/2019 Office Visit Ophthalmology Health Maintenance Due [...] Address Plan / Dates Group Neena LYNN [id number] 2018- [facility] Present documented as of this encounter
--- OUTSIDE RECORDS SUMMARY | 2019-06-16 05:13 | XMS REPORT | Summary of Care ---
Author Author [facility] - Health Organization [facility] Address Unknown Phone Unavailable Care Team Providers Care Recessing Machine Operator Name Role Phone PCP Unavailable Encounter Details Care Team Description Date Type Department Doctor Unassigned, [place] [address] [place] [address] 04/30/2019 Orders Only [facility] [address] [place] [address] Allergies Comments Active Allergy Reactions Severity Noted [...] of this encounter Last Filed Vital Signs Not on filedocumented in this encounter Plan of Treatment Care Team Description Date Type Specialty John Love MD [id number] [place] [address] [phone] Arrived 04/30/2019 Office Visit Ophthalmology Health Maintenance Due Date [...] Comments Procedure Name Priority Date/Time Associated Diagnosis NO SHOW OR MISSED Routine 04/30/2019 APPOINTMENT POLICY 9:31 AM CDT ACKNOWLEDGEMENT documented in this encounter Results Not on filedocumented in this encounter Insurance Type Payer Benefit Subscriber ID Effective Phone Address Plan / Dates Group [id number] 2018- [place] Present documented as of this encounter
--- OUTSIDE RECORDS SUMMARY | 2019-06-16 05:13 | XMS REPORT | Summary of Care ---
Author Author [facility] - Health Organization [facility] - Health Address Unknown Phone Unavailable Care Team Providers Care Design Engineer Name Role Phone PCP Unavailable Reason for Visit * Reason Comments GLAUCOMA SUSPECT * (Routine) Referred By Contact Referred To Contact Status Reason Specialty Diagnoses / Procedures Royer Mustafa MD [address] [place] [address] John Love MD [id number] [place] [address] Authorized OPH-OPHTHALMOLOG Diagnoses Y / Ischemic optic Ophthalmology neuropathy, unspecified eye 3-4mo fu repeat ou P rocedures EYE EXAM & TREATMENT FOLLOW-UP WITH F Encounter Details Care Team Description Date Type Department John Love MD 301 [facility] [employer] [id number] [place] [address] Glaucoma suspect of both eyes (Primary Dx); History of optic neuritis; Nuclear senile cataract of both eyes 04/30/2019 Office Visit [facility] [address], [address] [place] [address] Allergies Comments Active Allergy Reactions [...] of Systems Reviewed ROS done by the public health sanitarian technician during this encounter and there are [...] Date Type Specialty John Love MD 301 [facility] [id number] [place] [address] [phone] 11/12/2019 Office Visit Ophthalmology Health Maintenance Due [...] Phone Address Plan / Dates Group Neena YLNN [id number] 2018- [facility] Present documented as of this encounter
--- OUTSIDE RECORDS SUMMARY | 2019-06-16 05:13 | XMS REPORT | Clinical Summary ---
Author Author [facility] Address Unknown Phone Unavailable Care Team Providers Care Equal Opportunity Assistant Name Role Phone Amy Oakes MD PCP [...] unspecified; Candidiasis 06/27/2018 Emergency Emergency Medicine after 06/15/2018 Social History Date Tobacco Use Types Packs/Day Years Used Never Smoker Smokeless Tobacco: Never Used Drinks/Week oz/Week Comments Alcohol Use No Sex Assigned at Date Recorded Not on file Industry Job Start Date Occupation Not on file Not on file Not on file Travel End Travel History Travel Start No recent travel history available. Last Filed Vital Signs Reading Time Taken Comments Vital Sign 113/58 06/27/2018 6:41 PM CDT Blood Pressure 68 06/27/2018 6:41 PM CDT Pulse 36.7 C (98.1 F) 06/27/2018 1:57 PM CDT Temperature 20 06/27/2018 6:41 PM CDT Respiratory Rate 98% 06/27/2018 6:41 PM CDT Oxygen Saturation - - Inhaled Oxygen Concentration 89.8 kg (198 lb) 06/27/2018 1:57 PM CDT Weight 172.7 cm (5' 8") 06/27/2018 1:57 PM CDT Height 30.11 06/27/2018 1:57 PM CDT Body Mass Index Plan of Treatment Health Maintenance Due Date Last Done Comments CERVICAL CANCER SCREENING 1976 BREAST CANCER SCREENING 2005 COLONOSCOPY SCREENING 2005 SHINGLES VACCINES (#1) 2005 INFLUENZA [...] 06/27/2018 W/AUTO DIFF 3:10 PM CDT after 06/15/2018 Results * CT Abdomen Pelvis W Contrast (06/27/2018 5:01 PM CDT) Specimen Narrative Performed At CT ABDOMEN PELVIS W [...] participate in the care of your patient. [id number] Procedure Note Interface, Radiology Results Incoming - [...] participate in the care of your patient. [id number] Performing Organization Address City/State/Zipcode Phone Number [facility] [address] [place] [address] * Urinalysis screen and microscopy, with reflex to culture (06/27/2018 3:45 PM CDT) Specimen site Clean catch [facility] DEPARTMENT OF PATHOLOGY AND GENOMIC MEDICINE Color, UA Yellow [facility] DEPARTMENT OF PATHOLOGY AND GENOMIC MEDICINE Appearance, UA Slightly-Cloudy [facility] DEPARTMENT OF PATHOLOGY AND GENOMIC MEDICINE Specific 1.024 1.001 - 1.035 [facility] gravity, DEPARTMENT OF PATHOLOGY AND GENOMIC MEDICINE pH, UA 6.0 5.0 - 8.5 [facility] DEPARTMENT OF PATHOLOGY AND GENOMIC MEDICINE Protein, UA Negative Negative [facility] DEPARTMENT OF PATHOLOGY AND GENOMIC MEDICINE Glucose, UA Negative Negative [facility] DEPARTMENT OF PATHOLOGY AND GENOMIC MEDICINE Ketones, UA Negative Negative [facility] DEPARTMENT OF PATHOLOGY AND GENOMIC MEDICINE Bilirubin, UA Negative Negative [facility] DEPARTMENT OF PATHOLOGY AND GENOMIC MEDICINE Blood, UA Negative Negative [facility] DEPARTMENT OF PATHOLOGY AND GENOMIC MEDICINE Nitrite, UA Negative Negative [facility] DEPARTMENT OF PATHOLOGY AND GENOMIC MEDICINE Urobilinogen, Negative <2.0 [facility] DEPARTMENT OF PATHOLOGY AND GENOMIC MEDICINE Leukocyte Large (A) Negative [facility] esterase, UA DEPARTMENT OF PATHOLOGY AND GENOMIC MEDICINE Epithelial Many /HPF [facility] cells, UA DEPARTMENT OF PATHOLOGY AND GENOMIC MEDICINE Round Few 0 - 1 /HPF [facility] epithelial DEPARTMENT OF cells, UA PATHOLOGY AND GENOMIC MEDICINE WBC, UA 6-10 (H) 0 - 4 /HPF [facility] DEPARTMENT OF PATHOLOGY AND GENOMIC MEDICINE RBC, UA 11-20 (H) 0 - 5 /HPF [facility] DEPARTMENT OF PATHOLOGY AND GENOMIC MEDICINE Bacteria, UA Trace None seen [facility] DEPARTMENT OF PATHOLOGY AND GENOMIC MEDICINE Yeast, UA Many (A) [facility] DEPARTMENT OF PATHOLOGY AND GENOMIC MEDICINE Yeast with None seen [facility] pseudohyphae, DEPARTMENT OF UA PATHOLOGY AND GENOMIC MEDICINE Hyaline casts, 3-5 /LPF [facility] DEPARTMENT OF PATHOLOGY AND GENOMIC MEDICINE Specimen Urine Performing Organization Address City/[facility]/Zipcode Phone Number [facility] DEPARTMENT [address] [place] [address] PATHOLOGY AND GENOMIC MEDICINE * Gram stain (06/27/2018 3:45 PM CDT) Pathologist [facility] Gram stain Rare WBC's [facility] DEPARTMENT result Moderate Gram variable rods OF PATHOLOGY Comment: AND GENOMIC Specimen Information MEDICINE Specimen Source: Urine Specimen Site: Clean catch Specimen Urine Performing Organization Address City/[facility]/Zipcode Phone Number [facility] [place] [address] PATHOLOGY AND GENOMIC MEDICINE * Urine culture (06/27/2018 3:45 PM CDT) Pathologist [facility] Urine culture Mixed Gram positive yamileth [facility] DEPARTMENT isolate 10-5 cfu/ml OF PATHOLOGY (A) AND GENOMIC Comment: MEDICINE Specimen Information Specimen Source: Urine Specimen Site: Clean catch Specimen Urine Performing Organization Address City/[facility]/Zipcode Phone Number [facility] [place] [address] PATHOLOGY AND GENOMIC MEDICINE * Estimated GFR (06/27/2018 3:10 PM CDT) Pathologist [facility] Estimated GFR 53 (A) mL/min/1.73 m2 [facility] Comment: DEPARTMENT OF CatergoryUnitsInte PATHOLOGY AND rpretation GENOMIC G1 MEDICINE >=90 Normal or high G2 60-89Mildly decreased [id number] Mildly to moderately decreased [id number] Moderately to severely decreased G4 15-29Severely decreased G5 <15Kidney failure The eGFR was calculated using the Chronic Kidney Disease Epidemiology Collaboration (CKD-EPI) equation. Interpretation is based on recommendations of the National Kidney Foundation-Kidney Disease Outcomes Quality Initiative (NKF-KDOQI) published in 2014. Specimen Plasma specimen Performing Organization Address [facility] Phone Number [address] [place] [address] PATHOLOGY AND [employer] * Partial thromboplastin time, activated (06/27/2018 3:10 PM CDT) Pathologist [facility] PTT 30.8 23.0 - 36.0 sec [facility] Comment: DEPARTMENT OF PTT therapeutic range for PATHOLOGY AND unfractionated heparin is GENOMIC 61.0-112.0 seconds which MEDICINE corresponds to Anti-Xa 0.3-0.7 U/ml. Specimen Blood Performing Organization Address [facility] Phone Number [address] [place] [address] PATHOLOGY AND [facility] * Prothrombin time with INR (06/27/2018 3:10 PM CDT) Pathologist [facility] Prothrombin 12.9 12.0 - 15.0 sec [facility] time DEPARTMENT OF PATHOLOGY AND [employer] [facility] MEDICINE INR 1.0 [facility] Comment: DEPARTMENT OF The International Normalized PATHOLOGY AND Ratio (INR) is a therapeutic GENOMIC monitoring tool for patients MEDICINE who are stable on oral anticoagulant therapy. An INR of 2.0-3.0 is suggested for deep vein thrombosis/pulmonary embolism. Specimen Blood Performing Organization Address [facility] Phone Number [address] [place] [address] PATHOLOGY AND [facility] MEDICINE * CBC with platelet and differential (06/27/2018 3:10 PM CDT) Pathologist [facility] WBC 12.62 (H) 4.50 - 11.00 k/uL [facility] DEPARTMENT OF PATHOLOGY AND GENOMIC MEDICINE RBC 4.53 4.20 - 5.50 m/uL [facility] DEPARTMENT OF PATHOLOGY AND GENOMIC MEDICINE HGB 13.8 12.0 - 16.0 g/dL [facility] DEPARTMENT OF PATHOLOGY AND GENOMIC MEDICINE HCT 42.2 37.0 - 47.0 % [facility] DEPARTMENT OF PATHOLOGY AND GENOMIC MEDICINE MCV 93.2 82.0 - 100.0 fL [facility] DEPARTMENT OF PATHOLOGY AND GENOMIC MEDICINE MCH 30.5 27.0 - 34.0 pg [facility] DEPARTMENT OF PATHOLOGY AND GENOMIC MEDICINE MCHC 32.7 31.0 - 37.0 g/dL [facility] DEPARTMENT OF PATHOLOGY AND GENOMIC MEDICINE RDW - SD 47.2 37.0 - 55.0 fL [facility] OF PATHOLOGY AND GENOMIC MEDICINE MPV 9.8 8.8 - 13.2 fL [facility] OF PATHOLOGY AND GENOMIC MEDICINE Platelet count 198 150 - 400 k/uL [facility] DEPARTMENT OF PATHOLOGY AND GENOMIC MEDICINE Neutrophils 76.5 (H) 39.0 - 69.0 % [facility] DEPARTMENT PATHOLOGY AND GENOMIC MEDICINE Lymphocytes 15.1 (L) 25.0 - 45.0 % [facility] DEPARTMENT OF PATHOLOGY AND GENOMIC MEDICINE Monocytes 6.4 0.0 - 10.0 % [facility] DEPARTMENT OF PATHOLOGY AND GENOMIC MEDICINE Eosinophils 1.1 0.0 - 5.0 % [facility] PATHOLOGY AND GENOMIC MEDICINE Basophils 0.6 0.0 - 1.0 % [facility] DEPARTMENT OF PATHOLOGY AND GENOMIC MEDICINE Specimen Blood Performing Organization Address City/State/Zipcode Phone Number [facility] [address] [place] [id number] PATHOLOGY [facility] GENOMIC [facility] * Comprehensive metabolic panel (06/27/2018 3:10 PM CDT) Sodium 137 135 - 148 mEq/L [facility] DEPARTMENT OF PATHOLOGY AND GENOMIC MEDICINE Potassium 4.2 3.5 - 5.0 mEq/L [facility] DEPARTMENT OF PATHOLOGY AND GENOMIC MEDICINE Chloride 102 98 - 112 mEq/L [facility] DEPARTMENT OF PATHOLOGY AND GENOMIC MEDICINE CO2 23 (L) 24 - 31 mEq/L [facility] DEPARTMENT OF PATHOLOGY AND GENOMIC MEDICINE Anion gap 12@ANIO 7 - 15 mEq/L [facility] DEPARTMENT OF PATHOLOGY AND GENOMIC MEDICINE BUN 16 8 - 23 mg/dL [facility] DEPARTMENT OF PATHOLOGY AND GENOMIC MEDICINE Creatinine 1.10 (H) 0.50 - 0.90 mg/dL [facility] DEPARTMENT OF PATHOLOGY AND GENOMIC MEDICINE Glucose 98 65 - 99 mg/dL [facility] DEPARTMENT OF PATHOLOGY AND GENOMIC MEDICINE Calcium 9.1 8.8 - 10.2 mg/dL [facility] DEPARTMENT OF PATHOLOGY AND GENOMIC MEDICINE Protein 7.2 6.3 - 8.3 g/dL [facility] Comment: DEPARTMENT OF [place] PATHOLOGY AND 4.6-7.0 g/dL GENOMIC 1 MEDICINE week 4.4-7.6 g/dL 7 months-1year 5.1-7.3 g/dL 1-2 years5.6-7 .5 g/dL >3 years6.0-8 .0 g/dL 18-150 6.3-8.3 g/dL Albumin 4.1 3.5 - 5.0 g/dL [facility] DEPARTMENT OF PATHOLOGY AND GENOMIC MEDICINE A/G ratio 1.3 0.7 - 3.8 [facility] DEPARTMENT OF PATHOLOGY AND GENOMIC MEDICINE Alkaline 110 (H) 35 - 104 U/L [facility] phosphatase DEPARTMENT OF PATHOLOGY AND GENOMIC MEDICINE AST 17 10 - 35 U/L [facility] DEPARTMENT OF PATHOLOGY AND GENOMIC MEDICINE ALT 16 5 - 50 U/L [facility] DEPARTMENT OF PATHOLOGY AND GENOMIC MEDICINE Total bilirubin 0.3 0.0 - 1.2 mg/dL [facility] DEPARTMENT OF PATHOLOGY AND GENOMIC MEDICINE Specimen Plasma specimen Performing Organization Address City/State[facility] Phone Number [facility] DEPARTMENT [address] [place] [address] PATHOLOGY AND GENOMIC MEDICINE after 06/15/2018 Insurance Type Payer Benefit Subscriber ID Effective Phone Address Plan / Dates Group xxxxxxxxx 2017-P [facility] Advance Directives For more information, please contact: [phone] Bailiff Explanation Type Date Recorded Advance Directives, 06/27/2018 2:04 PM Living Will and Medical Power of Technical Laboratory Asst
--- OUTSIDE RECORDS SUMMARY | 2019-06-16 05:13 | XMS REPORT | Summary of Care ---
Author Author [facility] - Health Organization [facility] - Health Address Unknown Phone Unavailable Care Team Providers Care Prototype Engineer Manager Name Role Phone PCP Unavailable Reason for Visit * Reason Comments GLAUCOMA SUSPECT * (Routine) Referred By Contact Referred To Contact Status Reason Specialty Diagnoses / Procedures Royer Mustafa MD [address] [place] [address] John Love MD [id number] [place] [address] Authorized OPH-OPHTHALMOLOG Diagnoses Y / Ischemic optic Ophthalmology neuropathy, unspecified eye 3-4mo fu repeat ou P rocedures EYE EXAM & TREATMENT FOLLOW-UP WITH F Encounter Details Care Team Description Date Type Department John Love MD 301 [facility] [employer] [id number] [place] [address] Glaucoma suspect of both eyes (Primary Dx); History of optic neuritis; Nuclear senile cataract of both eyes 04/30/2019 Office Visit [facility] Eye [address], [address] [place] [address] Allergies Comments Active Allergy Reactions [...] of Systems Reviewed ROS done by the collision technician during this encounter and there are [...] Date Type Specialty John Love MD 301 [facility] [id number] [place] [address] [phone] 11/12/2019 Office Visit Ophthalmology Health Maintenance Due [...] Address Plan / Dates Group Neena LYNN [id number] 2018- [facility] Present documented as of this encounter
[2019-06-16 08:50] VITALS: BP 116/60
--- NOTE | 2019-07-28 06:14 | Operative Report ---
DATE OF PROCEDURE: 06/16/2019 SURGEON: Jeffrey Bush MD PREOPERATIVE DIAGNOSES: 1. Refractory urge incontinence. 2. Urinary tract infections. POSTOPERATIVE DIAGNOSES: 1. Refractory urge incontinence. 2. Urinary tract infections. 3. Minimal cystocele that is grade 1 and atrophic. 4. Atrophic (senile) vaginitis. OPERATION PERFORMED: 1. Cystourethroscopy with bilateral ureteral catheterization and retrograde ureteropyelography (separate procedure performed for the urinary tract infections). 2. Interpretation of retrograde ureteropyelography. 3. Supervision of fluoroscopy, no radiologist present. 4. Pelvic examination under anesthesia. 5. Cystourethroscopy with intravesical injection of Botox. ANESTHESIA: General. COMPLICATIONS: None. CLINICAL SUMMARY: Gabriella Shields is a 64-year-old unfortunate woman with the above preoperative diagnoses. She has refractory urge incontinence despite InterStim implantation. Botox seems to be helping. She is brought for another treatment. She is aware of the risks of bleeding, infection, injury to adjacent structures, need for additional procedures and elected to proceed. OPERATIVE PROCEDURE IN DETAIL: Informed consent was verified. Gabriella Shields was properly identified and was taken to the operative room and placed on the cystoscopy table in supine position. Anesthesia was uneventfully begun. The patient was then carefully gently repositioned in dorsal lithotomy position with all pressure points well padded. Her genitalia were prepared and draped in the usual sterile fashion. The cystoscope sheath with obturator in place was atraumatically inserted into the patient's urethra and bladder was drained. Panendoscopy of the bladder revealed no suspicious mucosal lesions, no tumors, no stones, no diverticula. Trabeculations were noted. An 8-[place] catheter was used to cannulate each ureter and retrograde ureteropyelograms were performed. Interpretation of retrograde ureteropyelography contrast was instilled in retrograde fashion bilaterally, InterStim was noted to be in position. There were no tumors, no stones, no diverticula. Unobstructed drainage was observed fluoroscopically. No evidence of hydronephrosis was noted. Botox was dissolved in sterile saline and it was then injected in an even distribution throughout the supratrigonal bladder. The patient's bladder was drained. Cystoscope was withdrawn. Pelvic examination under anesthesia revealed a grade 1 cystocele, no rectocele. No abnormal palpable pelvic masses could be appreciated. There were no obvious mucosal lesions. The patient was then uneventfully reversed from anesthesia and taken to the recovery room in stable condition. There were no complications during the procedure. She tolerated the procedure well. Explicit postoperative instructions were given. We will follow the patient up in the office. MD TYRA Magdaleno/GINA /[id number]
== END | disposition home or self-care (01) ==
LOC: OR 05:00
PROVIDERS: ATTEND Urology
DX: N39.41 Urge incontinence (principal); N39.0 Urinary tract infection, site not specified; N20.0 Calculus of kidney; N81.10 Cystocele, unspecified; N95.2 Postmenopausal atrophic vaginitis; N32.89 Other specified disorders of bladder; E78.5 Hyperlipidemia, unspecified; G35 Multiple sclerosis; Z88.6 Allergy status to analgesic agent; Z88.2 Allergy status to sulfonamides; Z01.810 Encounter for preprocedural cardiovascular examination; Z87.891 Personal history of nicotine dependence
CPT/HCPCS: 52005; 52287; 74420; 93005; C1758; J0587; J0696; J1100; J1580; J2001; J2250; J2405; J2704; J3010; Q9967

== ENCOUNTER → 2021-06-23 | Day surgery (SDC) | payer MEDICARE, OTHER ==
[2021-06-20 14:43] LABS: BASOPHILS # (AUTO) 0.1 (0.0-0.1); BASOPHILS % 1.2 % (0.0-1.0); EOSINOPHILS # (AUTO) 0.2 (0.0-0.4); EOSINOPHILS % 2.8 % (0.0-6.0); HEMATOCRIT 47.6 % (34.2-44.1); HEMOGLOBIN 14.1 g/dL (12.0-16.0); LYMPHOCYTES # (AUTO) 2.7 (1.0-3.2); LYMPHOCYTES % 32.6 % (18.0-39.1); MEAN CORPUSCULAR HEMOGLOBIN 28.8 pg (28-32); MEAN CORPUSCULAR HGB CONC 29.6 g/dL (31-35); MEAN CORPUSCULAR VOLUME 97.3 fL (81-99); MONOCYTES # (AUTO) 0.6 (0.2-0.8); MONOCYTES % 7.1 % (4.4-11.3); NEUTROPHILS # (AUTO) 4.7 (2.1-6.9); NEUTROPHILS % 56.2 % (38.7-80.0); PLATELET COUNT 225 x10e3/uL (140-360); RED BLOOD COUNT 4.89 x10e6/uL (3.6-5.1); RED CELL DISTRIBUTION WIDTH 14.4 % (11.7-14.4)
[2021-06-20 15:05] LABS: CALCIUM 8.7 mg/dL (8.4-10.2); CREATININE, SERUM 0.9 mg/dL (0.57-1.11)
[~2021-06-23] MED LIST changes: -B&O 60MG R/S 60 MG SUPP PR ONE; -BOTULINUM TOXIN TYPE A 100 UNIT VIAL IM ONE; +BUPIVACAINE HCL 0.5% INJ 30 ML VIAL INJ ONE; +CALCIUM500 MG PO; -CEFTRIAXONE SOD 1 GM/NS 50 ML 50 ML IV ONE; +CLINDAMYCIN 300MG 50 ML IV ONE; -DEXAMETHASONE SOD PHOS INJ 4 MG/ML VIAL ONE; -FENTANYL CITRATE/PF 100MCG/2 ML INJ ONE; -GENTAMICIN SULFATE 40 MG/ML 2 ML VIAL ONE; -IOPAMIDOL 610MG/1ML 300 MG/ML VIAL IV ONE; +LIDOCAINE 2%/ EPINEPHRINE 20ML MDV ONE; -LIDOCAINE HCL 2% LOCAL INJ 5 ML SDV VIAL INJ ONE; -MIDAZOLAM HCL 2 MG/2 ML VIAL ONE; -ONDANSETRON HCL INJ 2MG/ML 2ML 2 MG/ML VIAL ONE; +PIPERACILLIN/TAZOBACTAM 3.375 GM VIAL ONE; -PROPOFOL IV EMULSION 10 MG/ML 20 ML VIAL ONE; -SEVOFLURANE INHAL SOLN 250 ML PEN BTL ONE; +SODIUM CHLORIDE 0.9% 50ML 50 ML ONE; +VITAMIN D310 MCG PO
[2021-06-23 13:15] VITALS: BP 110/57
== END | disposition home or self-care (01) ==
LOC: OR 08:37
PROVIDERS: ATTEND Urology
DX: T85.113A Breakdown (mechanical) of implanted electronic neurostimulator, generator, initial encounter (principal); N39.41 Urge incontinence; N31.9 Neuromuscular dysfunction of bladder, unspecified; N39.0 Urinary tract infection, site not specified; N81.89 Other female genital prolapse; N81.6 Rectocele; N95.2 Postmenopausal atrophic vaginitis; G35 Multiple sclerosis; E66.9 Obesity, unspecified; N20.0 Calculus of kidney; N28.1 Cyst of kidney, acquired; E78.5 Hyperlipidemia, unspecified; E78.00 Pure hypercholesterolemia, unspecified; Y83.9 Surgical procedure, unspecified as the cause of abnormal reaction of the patient, or of later complication, without mention of misadventure at the time of the procedure; Z88.6 Allergy status to analgesic agent; Z88.2 Allergy status to sulfonamides; Z68.34 Body mass index [BMI] 34.0-34.9, adult; Z01.810 Encounter for preprocedural cardiovascular examination; Z01.812 Encounter for preprocedural laboratory examination; Z01.818 Encounter for other preprocedural examination; Z20.822 Contact with and (suspected) exposure to COVID-19
CPT/HCPCS: 36415; 64585; 64595; 71046; 80048; 85025; 88300; 93005; J2001; J2543; U0002